=== PATIENT | male | born 1960 | race African-American/Black ===

== ENCOUNTER 2018-11-11 09:57 | Emergency (ER) | payer BC ==
[~2018-11-11] VITALS: Ht 170.2 cm; Wt 104.3 kg
--- NOTE | 2018-11-11 11:47 | Diagnostic Imaging Report ---
EXAMINATION: PA and lateral views of the chest. COMPARISON: None CLINICAL HISTORY: Cough, shortness of breath DISCUSSION: Lines/tubes: None. Lungs: The lungs are well inflated and clear. Central venous congestion. No pneumonia or pulmonary edema. Pleura: No pleural effusion or pneumothorax. Heart and mediastinum: Mild cardiomegaly Bones and soft tissues: No acute bony abnormalities. IMPRESSION: Hepatomegaly with central venous congestion Signed by: Dr. Hossein Madera M.D. on 11/11/2018 11:43 AM
--- NOTE | 2018-11-11 12:31 | NUR ---
PT RESTING, VITAL SIGNS STABLE. FAMILY AT BEDSIDE. PT VOICES NO COMPLAINTS AT THIS TIME.
[2018-11-11] MEDS ORDERED: FUROSEMIDE INJ 10 MG/ML 4 ML VIAL IV ONE (12:45)
--- NOTE | 2018-11-11 14:01 | NUR ---
PT EATING WITH FAMILY AT BEDSIDE, VITAL SIGNS STABLE, PT VOICES NO COMPLAINTS AT THIS TIME. PT AWARE OF DELAY WITH TRANSFER. NO BEDS AVAILABLE AT [facility] OR [facility] CALL INTO [facility]
--- NOTE | 2018-11-11 14:42 | NUR ---
[facility] CALLED FOR TRANSFER ETA 60 MINUTES
--- NOTE | 2018-11-11 15:08 | NUR ---
PT RESTING WITH AT BEDSIDE. VITAL SIGNS STABLE, PT VOICES NO COMPLAINTS AT THIS TIME. PT URINATING FREQUENTLY
--- NOTE | 2018-11-11 15:30 | NUR ---
REPORT TO JOHANA SANCHEZ AT [facility] ALL QUESTIONS ANSWERED
[2018-11-11 15:50] VITALS: BP 169/101
== END 2018-11-11 15:45 | disposition other institution (70) ==
LOC: FSED 09:57
DX: R06.09 Other forms of dyspnea (principal); I50.21 Acute systolic (congestive) heart failure; I50.1 Left ventricular failure, unspecified; I10 Essential (primary) hypertension; R73.9 Hyperglycemia, unspecified; Z87.891 Personal history of nicotine dependence
CPT/HCPCS: 71046; 80053; 81003; 82553; 83880; 84484; 85025; 85379; 93005; 99284; J1940